=== PATIENT | female | born 1990 | race Two or more races ===

== ENCOUNTER 2017-05-31 16:16 | Emergency (ER) | payer MEDICAID ==
[~2017-05-31] VITALS: Ht 162.6 cm; Wt 63.3 kg
[2017-05-31 16:21] VITALS: BP 110/74
== END 2017-05-31 17:05 | disposition home or self-care (01) ==
LOC: ED 16:55
DX: B02.9 Zoster without complications (principal)
CPT/HCPCS: 99283